=== PATIENT | female | born 2005 | race Two or more races ===

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

== ENCOUNTER 2024-03-10 10:47 | Emergency (ER) | payer OTHER ==
[~2024-03-10] VITALS: Ht 165.1 cm; Wt 68.0 kg
[2024-03-10 13:01] LABS: MEAN CELL VOLUME 81.2 fL (80.00-100.00); MEAN CORPUSCULAR HGB CONC 32.9 g/dl (32.0-36.0); PLATELET COUNT 273 K/uL (150-450); RED BLOOD COUNT 2.51 M/uL (4.00-6.00); RED CELL DISTRIBUTION WIDTH 14.6 % (11.5-14.5)
[2024-03-10 13:06] LABS: HEMATOCRIT 20.4 % (36.0-45.00); HEMOGLOBIN 6.7 g/dL (12.0-15.00); MEAN CORPUSCULAR HEMOGLOBIN 26.6 pg (27.00-32.0)
[2024-03-10 13:18] LABS: ALBUMIN 3.5 gm/dL (3.4-5.0); BILIRUBIN TOTAL 0.66 mg/dL (0.3-1.2); CALCIUM 8.8 mg/dL (8.5-10.1); CREATININE SERUM 0.59 mg/dL (0.55-1.02); GFR 131.31; GLOBULINA 3.4 G/DL (2.4-3.5); POTASSIUM 3.37 mEq/L (3.5-5.1); TOTAL PROTEIN 6.9 gm/dL (6.4-8.2)
[2024-03-10] MEDS ORDERED: LIDOCAINE HCL 1% 10ML VIAL ONE (15:05)
== END 2024-03-10 17:09 | disposition designated cancer center or children's hospital (05) ==
LOC: ER 10:49 → EMR PED 11:15 → ER 17:09
PROVIDERS: Emergency Medicine Pediatric Emergency Medicine
DX: K52.89 Other specified noninfective gastroenteritis and colitis (principal); D64.9 Anemia, unspecified; Z20.822 Contact with and (suspected) exposure to COVID-19